=== PATIENT | female | born 1950 | race Caucasian/White ===

== ENCOUNTER 2020-11-01 13:38 | Outpatient (CLI) | payer MEDICARE, MEDICAID, SELFPAY ==
--- NOTE | ~2020-11-01 | XR_ITS ---
XR abdomen/kub 1V 11/01/2020 13:54 Indication: Renal stones Procedure: KUB Comparison: No prior studies for comparison. Findings: Bowel gas pattern is nonobstructive. There is an 8 mm left renal stone. Bowel gas pattern i s nonobstructive. There are pelvic calcifications, likely phleboliths. No acute osseous abnormality. Impression: 1: Left nephrolithiasis. Reviewed, dictated and finalized at location B. Impression: 1: Left nephrolithiasis.
== END 2020-11-01 13:39 | disposition home or self-care (01) ==
LOC: ANHIMG 13:46
PROVIDERS: PCP Pediatrics; Visit Provider Urology
DX: N20.0 Calculus of kidney (principal)
CPT/HCPCS: 74018

== ENCOUNTER 2020-11-10 14:49 | Outpatient (CLI) | payer MEDICARE, MEDICAID, SELFPAY ==
--- NOTE | 2020-11-10 15:00 | ECG_ITS ---
Measurements Intervals [place] Rate: 75 P: TX: 0 QRS: 6 QRSD: 88 T: 57 QT: 372 QTc: 417 Interpretive Statements SINUS OR ECTOPIC ATRIAL RHYTHM BASELINE ARTIFACT- I, II, III, AVR, AVL, AVF, V1, V3 BORDERLINE ECG Electronically Signed On 11-10-2020 15:15:38 CDT by Von Samll D.O.
[2020-11-10 15:23] LABS: INR 0.9; Prothrombin Time 12.9 Seconds (11.1-14.7)
[2020-11-10 15:24] LABS: Partial Thromboplastin Time 31.1 SECONDS (22.3-36.8)
== END 2020-11-10 14:50 | disposition home or self-care (01) ==
LOC: ANHSURGERY 14:52
PROVIDERS: PCP Pediatrics; Visit Provider Urology
DX: N20.0 Calculus of kidney (principal); E78.00 Pure hypercholesterolemia, unspecified; Z01.818 Encounter for other preprocedural examination; R94.31 Abnormal electrocardiogram [ECG] [EKG]
CPT/HCPCS: 36415; 85610; 85730; 87077; 87086; 87088; 93005

== ENCOUNTER → 2020-11-14 00:25 | Outpatient (CLI) | payer MEDICARE, MEDICAID, SELFPAY ==
[2020-11-14 20:45] LABS: SARS-CoV-2 RNA PCR Negative
== END ==
PROVIDERS: PCP Pediatrics; Visit Provider Urology
DX: Z01.812 Encounter for preprocedural laboratory examination (principal); Z20.822 Contact with and (suspected) exposure to COVID-19
CPT/HCPCS: C9803; U0003; U0005

== ENCOUNTER 2020-11-17 00:40 | Day surgery (SDC) | payer MEDICARE, MEDICAID, SELFPAY ==
[2020-11-10 09:14] VITALS: BMI 43.0
--- NOTE | ~2020-11-17 | XR_ITS ---
EXAMINATION: XR abdomen/kub 1V EXAM DATE: 11/17/2020 06:43 INDICATION: For lithotripsy. TECHNIQUE: Frontal projection of the upper abdomen, frontal projection lower abdomen/pelvis for inter pretation. Comparison is made to prior examination from 10/22/2020. FINDINGS: Again there is approximately 8 mm dense calcification projecting over the left kidney, has been indicated. Calcifications in the pelvis are believed to be phleboliths. Nonobstructive bowel ga s pattern. Moderate symmetric bilateral hip primary osteoarthritis. There is no organomegaly. IMPRESSION: 1. Left nephrolithiasis. Reviewed, dictated and finalized at location A. IMPRESSION: 1. Left nephrolithiasis.
--- NOTE | 2020-11-17 07:31 | WPDHPUPDATE1 ---
History and Physical Update Update Date/Time: 11/17/20 07:31 History and Physical has been reviewed, including an updated exam of the patient. There are NO changes in the patient's condition. Risks, benefits, and alternatives have been discussed and questions answered. Patient agrees to proceed with procedure. Proceed with eswl of left renal calculus with flexible cystoscopy
[2020-11-17] MEDS: LACTATED RINGERS 1,000 ML 30 ML IV CONT ×2 (07:40→09:19)
[2020-11-17 07:48] VITALS: BP 115/62; PULSE 80; RESP 14; TEMP 36.6; O2SAT 93
[2020-11-17 07:54] VITALS: BMI 44.5
--- NOTE | 2020-11-17 08:14 | P.PNAN_ITS ---
Anes - Initial Pre Proc Eval Procedure: Operation Date: 11/17/20 08:30 Proposed Procedures p Left Renal Extracorporeal Shock Wave Lithotripsy - Francisco Delacruz MD s Cystoscopy - Francisco Delacruz MD Date/Time: 11/17/20 08:14 Surgeon: Francisco Delacruz MD Pre Op Diagnosis: left renal kidney stone Patient Data Age: 70 Gender: F Height: 5 ft 2 in Weight: 110.5 kg Last Vital Signs Temp 36.6 C 11/17/20 07:48 Pulse 80 11/17/20 07:48 Resp 14 11/17/20 07:48 BP 115/62 11/17/20 07:48 Pulse Ox 93 11/17/20 07:48 Allergies Allergy/AdvReac Type Severity Reaction Status Date / Time No Known Allergies Allergy Verified 11/17/20 07:30 Home Medications Medication Instructions Recorded Confirmed Type atorvastatin 20 mg HS 11/10/20 11/10/20 History cholecalciferol (vitamin D3) 125 mcg PO DAILY 11/10/20 11/17/20 History levothyroxine 100 mcg QAM 11/10/20 11/17/20 History sertraline 100 mg QAM 11/10/20 11/10/20 History sumatriptan succinate 100 mg PO PRN PRN 11/10/20 11/10/20 History topiramate 25 mg HS 11/10/20 11/10/20 History trazodone 100 mg HS 11/10/20 11/10/20 History Patient hx anesthesia problems: none Family hx anesthesia problems: none [facility] Past Medical History Medical History Hx of migraines Hyperlipidemia Hypothyroid Social History Social History Smoking status: Never smoker Second hand tobacco smoke exposure: No Alcohol intake: never Substance use: never Substance use type: does not use Living arrangements: alone Spiritual care concerns: No Anes - Eval Final PreProcedure Day of Procedure 11/17/20 08:14 Patient weight: morbidly obese Heart: regular rate and rhythm Lungs: clear to auscultation Airway: Mallampati scale class II Neurological: alert and oriented Last oral intake: >/= 8 hours ASA classification: III Emergent: no Anesthetic plan: proceed Anesthesia type and monitoring: general LMA and standard monitoring Informed Consent: The patient's anesthetic plan and its attendant risks and benefits were discussed with the patient/family/POA. Questions were solicited and answers provided to the satisfaction of the patient/family/POA.
[2020-11-17] MEDS: ceFAZolin 2 GM/D5W 50 ML 2 GM/50 ML BAG IVPB (08:30)
--- NOTE | 2020-11-17 09:08 | PM.PROC ---
Procedure Note - Detailed Date of procedure: 11/17/20 Pre-op diagnosis: left renal kidney stone Micro hematuria Post-op diagnosis: same Procedure performed: Flexible cystoscopy, ESWL of left renal calculus Description of procedure: Patient is taken to the operative suite and correctly identified. Once anesthesia was obtained she was placed in a frog-leg position prepped and draped usual sterile fashion. A 16 [place]ese flexible scope was inserted into the meatus. Bladder is inspected in its entirety. Both ureteral orifices normal anatomic position. There are no tumors or irregularities noted at this time. Patient is then reposition. The left renal stone was localized in both planes. Two thousand five hundred shocks were given the stone. There appeared to be fragmentation. Patient tolerated procedure well without any complications and is taken recovery stable condition. She will follow up in about 10-14 days with a KUB. Anesthesia: GLMA Surgeon: Francisco Delacruz MD Drains: No Packing: No Pathology: none sent Complications: No immediate complications Condition: stable Disposition: PACU
[2020-11-17 09:20] VITALS: BP 126/52; BP 148/72; PULSE 72; PULSE 90; RESP 12; RESP 20; TEMP 36.4; O2SAT 98
[2020-11-17 09:35] VITALS: BP 145/57; PULSE 76; RESP 22; O2SAT 100
[2020-11-17 09:50] VITALS: BP 121/70; PULSE 78; RESP 22; O2SAT 95
[2020-11-17 09:53] VITALS: BP 152/67; PULSE 79; RESP 20
[2020-11-17 10:50] VITALS: BP 136/68; PULSE 72; RESP 16
== END 2020-11-17 11:00 | disposition home or self-care (01) ==
PROVIDERS: PCP Pediatrics; Visit Provider Urology
PROC: (CPT 50590; principal; 2020-11-17 08:30)
PROC: 0TCB8ZZ Extirpation of Matter from Bladder, Via Natural or Artificial Opening Endoscopic (ICD-10-PCS; CPT 52352; 2020-11-17 08:30)
DX: N20.0 Calculus of kidney (principal); R31.9 Hematuria, unspecified; E03.9 Hypothyroidism, unspecified; E78.5 Hyperlipidemia, unspecified; E66.9 Obesity, unspecified; Z68.41 Body mass index [BMI] 40.0-44.9, adult
CPT/HCPCS: 50590; 74018; A9270; J0131; J0690; J1100; J2405; J2704; J3010; J7030; J7120

== ENCOUNTER 2020-12-05 10:32 | Outpatient (CLI) | payer MEDICARE, SELFPAY ==
--- NOTE | ~2020-12-05 | XR_ITS ---
EXAMINATION: XR abdomen/kub 1V INDICATION: History of left nephrolithiasis TECHNIQUE: Supine views of the abdomen were obtained on 2 radiographs. COMPARISON: 11/17/2020 FINDINGS: The previously described 8 mm left kidney stone is no longer identified. A small 4 mm stone fragment is seen in the lower pole of the kidney. No stone fragments are identified along the expect ed course of the left ureter. There are phleboliths of the pelvis. The bowel gas pattern is normal. T here is mild osteoarthritis of the hips. IMPRESSION: 1. Interval treatment of the previously described left kidney stone with small stone fragment in the left kidney lower pole. Reviewed, dictated and finalized at location A.
== END 2020-12-05 10:33 | disposition home or self-care (01) ==
LOC: ANHIMG 10:36
PROVIDERS: PCP Pediatrics; Visit Provider Urology
DX: N20.0 Calculus of kidney (principal)
CPT/HCPCS: 74018